=== PATIENT | female | born 1985 | race Caucasian/White ===

== ENCOUNTER 2018-04-03 18:27 | Emergency (ER) | payer BC, MEDICAID ==
[~2018-04-03] VITALS: Ht 167.6 cm; Wt 81.6 kg
[~2018-04-03 18:27] MED LIST: LIS20T PO
[2018-04-03] MEDS ORDERED: SUMAtriptan SUCCINATE 6 MG/0.5 ML VL SC ONE (19:00)
[2018-04-03 19:41] LABS: Basophils # (auto) 0 uL; Basophils % (auto) 0.4 % (0.0-2.0); Eosinophils # (auto) 0 uL; Eosinophils % (auto) 0.6 % (0.0-7.0); Hematocrit 40.9 % (36.0-46.0); Hemoglobin 13.4 g/dL (12.2-16.2); Lymphocytes # (auto) 2.6 uL; Lymphocytes % (auto) 30.3 % (10.0-50.0); Mean Corpuscular Hemoglobin 26.7 pg (28.0-32.0); Mean Corpuscular Hgb Conc. 32.8 g/dL (32.0-36.0); Mean Corpuscular Volume 81.5 fL (80.0-100.0); Monocytes # (auto) 0.6 uL; Monocytes % (auto) 6.7 % (0.0-12.0); Neutrophils # (auto) 5.3 uL; Nucleated Red Blood Cells % 0.1 %; Platelet Count (auto) 379 10^3/uL (140-450); Red Blood Cells 5.02 10^6/uL (4.0-5.20); Red Cell Distribution Width 13.9 % (11.8-14.3); White Blood Cell 8.6 10^3/uL (4.4-10.8)
[2018-04-03 20:04] LABS: Alanine Aminotransferase 44 U/L (13-56); Albumin 3.7 g/dL (3.4-5.0); Aspartate Aminotransferase 65 U/L (15-37)
[2018-04-03 20:16] LABS: Anion Gap 12 (5-15); BUN/Creatinine Ratio 11.4; Blood Urea Nitrogen 8 mg/dL (7-18); Carbon Dioxide 22 mmol/L (21-32); Chloride 103 mmol/L (98-107); GFR African American 125 mL/min; GFR Non-African American 103 mL/min; Glucose 123 mg/dL (74-106); Potassium 3.9 mmol/L (3.5-5.1); Sodium 137 mmol/L (136-145)
[2018-04-03 20:17] LABS: Alkaline Phosphatase 58 U/L (45-117); Bilirubin, Total 0.4 mg/dL (0.2-1.0); Calcium 8.6 mg/dL (8.5-10.1); Total Protein 7.7 g/dL (6.4-8.2)
[2018-04-03] MEDS: amLODIPine BESYLATE 5 MG TAB PO ONE ×2 (20:41→20:43)
[2018-04-03] MEDS ORDERED: ONDANSETRON HCL 4 MG/2 ML VIAL IV ONE (22:30)
[2018-04-03] MEDS ORDERED: ONDANSETRON HCL 4 MG/2 ML VIAL ONE (22:33)
[2018-04-03] MEDS ORDERED: LISINOPRIL 20 MG TAB PO ONE (23:30)
[2018-04-03 23:32] VITALS: BP 149/92
== END 2018-04-04 00:15 | disposition home or self-care (01) ==
LOC: EDBD 18:27 → ER 18:33
DX: I10 Essential (primary) hypertension (principal); R51 Headache; E11.9 Type 2 diabetes mellitus without complications; R42 Dizziness and giddiness; Z88.6 Allergy status to analgesic agent
CPT/HCPCS: 36415; 70450; 80053; 84484; 85025; 93005; 96372; 96374; 99284; J2405; J3030

== ENCOUNTER 2018-07-15 02:34 | Emergency (ER) | payer MEDICAID ==
[~2018-07-15] VITALS: Ht 154.9 cm; Wt 93.9 kg
[2018-07-15 03:04] VITALS: BP 147/101
[2018-07-15] MEDS ORDERED: methylPREDNISolone SOD SUCC 125 MG/2 ML VL IM ONE (05:30)
[2018-07-15] MEDS ORDERED: ACETAMINOPHEN/CODEINE#3 (300/30mg) TAB PO ONE (05:30)
[2018-07-15] MEDS ORDERED: cefTRIAXone SOD 1,000 MG VL IM ONE (05:30)
== END 2018-07-15 06:29 | disposition home or self-care (01) ==
LOC: ER 02:34
DX: J06.9 Acute upper respiratory infection, unspecified (principal); E11.9 Type 2 diabetes mellitus without complications; I10 Essential (primary) hypertension; Z91.013 Allergy to seafood
CPT/HCPCS: 96372; 99283; J0696; J2930

== ENCOUNTER 2019-03-04 09:10 | Emergency (ER) | payer MEDICAID ==
[~2019-03-04] VITALS: Ht 154.9 cm; Wt 89.4 kg
[2019-03-04] MEDS ORDERED: ONDANSETRON ODT 4 MG TAB PO ONE (11:30)
[2019-03-04 12:06] LABS: Urine Bacteria FEW /hpf (None Seen); Urine Blood Negative /uL (Negative); Urine Mucus FEW (None Seen); Urine Specific Gravity 1.021 (1.001-1.035); Urine WBC 10 /hpf (0 - 5)
[2019-03-04 12:19] VITALS: BP 144/98
== END 2019-03-04 12:44 | disposition home or self-care (01) ==
LOC: ER 09:10
DX: N39.0 Urinary tract infection, site not specified (principal); J20.9 Acute bronchitis, unspecified; E11.9 Type 2 diabetes mellitus without complications; I10 Essential (primary) hypertension; E78.00 Pure hypercholesterolemia, unspecified; Z90.49 Acquired absence of other specified parts of digestive tract; Z90.89 Acquired absence of other organs; Z91.013 Allergy to seafood; Z88.8 Allergy status to other drugs, medicaments and biological substances; Z79.899 Other long term (current) drug therapy
CPT/HCPCS: 71046; 81001; 81025; 82962; 99284; Q0162

== ENCOUNTER 2019-10-12 15:21 | Emergency (ER) | payer MEDICAID ==
[~2019-10-12] VITALS: Ht 154.9 cm; Wt 93.9 kg
[2019-10-12 16:09] VITALS: BP 146/95
[2019-10-12 16:48] LABS: Urine Blood Negative /uL (Negative); Urine Specific Gravity 1.021 (1.001-1.035); Urine WBC 43 /hpf (0 - 5)
[2019-10-12 16:49] LABS: Urine Bacteria FEW /hpf (None Seen); Urine Mucus FEW (None Seen); Urine Sperm PRESENT /hpf (None Seen)
[2019-10-12] MEDS ORDERED: cefTRIAXone SOD 1,000 MG VL IM ONE (17:30)
[2019-10-12] MEDS ORDERED: KETOROLAC TROMETH 60MG/2ML VIAL IM ONE (17:30)
[2019-10-12] MEDS ORDERED: ONDANSETRON ODT 4 MG TAB PO ONE (17:45)
== END 2019-10-12 17:56 | disposition home or self-care (01) ==
LOC: ER 15:21
DX: N39.0 Urinary tract infection, site not specified (principal); N20.0 Calculus of kidney; E11.9 Type 2 diabetes mellitus without complications; I10 Essential (primary) hypertension; E78.5 Hyperlipidemia, unspecified; Z90.89 Acquired absence of other organs; Z91.013 Allergy to seafood; Z88.6 Allergy status to analgesic agent
CPT/HCPCS: 81001; 96372; 99284; J0696; J1885; Q0162

== ENCOUNTER 2023-02-09 08:14 | Emergency (ER) | payer MEDICAID ==
[~2023-02-09] VITALS: Ht 154.9 cm; Wt 78.0 kg
[2023-02-09 09:51] VITALS: BP 132/63; PULSE 93; RESP 16; TEMP 98.7; O2SAT 96
[2023-02-09] MEDS ORDERED: METH4PAK PO (09:53)
[2023-02-09] MEDS ORDERED: TRIA0.02 TOP (09:53)
== END 2023-02-09 10:07 | disposition home or self-care (01) ==
LOC: ER 08:14 → EDBD 08:14 → ER 10:07
DX: T78.40XA Allergy, unspecified, initial encounter (principal); I10 Essential (primary) hypertension; E78.5 Hyperlipidemia, unspecified; Z90.49 Acquired absence of other specified parts of digestive tract; Z90.89 Acquired absence of other organs; Z79.899 Other long term (current) drug therapy; Z88.8 Allergy status to other drugs, medicaments and biological substances; Z91.013 Allergy to seafood; Y92.89 Other specified places as the place of occurrence of the external cause

== ENCOUNTER 2023-10-25 10:50 | Emergency (ER) | payer MEDICAID ==
[~2023-10-25] VITALS: Ht 154.9 cm; Wt 73.9 kg
[~2023-10-25 10:50] MED LIST changes: +METH4PAK PO; +TRIA0.02 TOP
[2023-10-25 14:30] VITALS: BP 109/69; PULSE 84; RESP 16; TEMP 98.1; O2SAT 98
[2023-10-25] MEDS ORDERED: METH4PAK PO (14:31)
[2023-10-25] MEDS ORDERED: MELO7.5T7 PO (14:31)
== END 2023-10-25 14:31 | disposition home or self-care (01) ==
LOC: ER 10:50
DX: M13.842 Other specified arthritis, left hand (principal); E78.5 Hyperlipidemia, unspecified; I10 Essential (primary) hypertension; Z90.49 Acquired absence of other specified parts of digestive tract; Z90.89 Acquired absence of other organs; Z79.899 Other long term (current) drug therapy; Z91.013 Allergy to seafood
CPT/HCPCS: 73200